=== PATIENT | male | born 1985 | race Caucasian/White ===

== ENCOUNTER → 2020-02-05 | Day surgery (SDC) | payer OTHER ==
--- NOTE | 2020-02-03 20:58 | Pre Op History & Physical ---
DATE OF SURGERY: February 05, 2020. CHIEF COMPLAINT: Chronic tonsillitis and history of lingual tonsillitis. HISTORY OF PRESENT ILLNESS: This 34-year-old male has history of sore throat. He also complained of persistent halitosis. The patient has no dysphagia, odynophagia or shortness of breath. The patient does have pain in his lingual tonsil area on exam. He has been treated with more than eight weeks of antibiotics, topical nasal steroid, decongestant with no improvement. REVIEW OF SYSTEMS: System review showed no recent cardiovascular, respiratory or GI problem. PAST MEDICAL HISTORY: He has no medical problem. PAST SURGICAL HISTORY: He has no previous surgery. ALLERGIES: HE IS ALLERGIC TO STEROID SPRAY, WHICH HE CLAIMED THAT MAKE HIM VOMIT BUT HE CAN TAKE STEROID BY MOUTH. MEDICATIONS: He is on Clomid and ampheta-dextro. SOCIAL HISTORY: Nonsmoker, nondrinker. FAMILY HISTORY: Noncontributory. PHYSICAL EXAMINATION: VITAL SIGNS: The patient's vital signs were within normal limits. HEENT: Ear exam showed normal tympanic membrane bilaterally. Nasal exam showed deviated nasal septum on the right side about 20%. Nasal endoscopy showed mobile vocal folds bilaterally with reproduction of some of his discomfort in the lingual tonsil area. Oropharynx and oral cavity show 2+ tonsils bilaterally with Mallampati level two with tonsilliths on both sides. NECK: Showed no lymph node or thyroid palpable. CHEST: Showed good air entry bilaterally. CARDIOVASCULAR: Showed S1, S2. No murmur noted. ASSESSMENT AND PLAN: Mr. Clifford has chronic tonsillitis and lingual tonsillitis, which has been resistant to conservative therapy. The suggested treatment is tonsillectomy and biopsy of the lingual tonsil and other necessary procedure. Complication of procedure includes but not limited to bleeding, infection, hyponasal speech, nasal regurgitation of food, airway distress, persistent recurrence of the problem. The alternative will be continue observation, continue antibiotic therapy, topical nasal steroid therapy, systemic steroid therapy, decongestant. The patient has elected to undergo surgical procedure. MD DAWSON Diaz/ESTEBANL /[id number]
[~2020-02-05] MED LIST: ADDERALL 20 MG20 MG PO; BUPIVACAINE HCL 0.5% INJ 30 ML VIAL INJ ONE; DEXAMETHASONE SOD PHOS 10 MG/1 ML VIAL ONE; GLYCOPYRROLATE INJ 0.2 MG/ML VIAL ONE; LIDOCAINE 1% W/EPINEPHRINE 20 ML VIAL ONE; LIDOCAINE HCL 2% LOCAL INJ 5 ML SDV VIAL INJ ONE; NEOSTIGMINE 1 MG/ML 10ML VIAL ONE; ONDANSETRON HCL INJ 2MG/ML 2ML 2 MG/ML VIAL ONE; PROPOFOL IV EMULSION 10 MG/ML 20 ML VIAL ONE; ROCURONIUM BROMIDE 10 MG/ML 5ML VIAL IV ONE; SEVOFLURANE INHAL SOLN 250 ML PEN BTL ONE; SUGAMMADEX SODIUM 200 MG/2 ML VIAL IV ONE
[2020-02-05 07:11] LABS: INR 0.9; PROTHROMBIN TIME 12.6 seconds (11.9-14.5)
[2020-02-05 07:12] LABS: PARTIAL THROMBOPLASTIN TIME 27.7 seconds (23.8-35.5)
--- NOTE | 2020-02-05 08:51 | Operative Report ---
DATE OF PROCEDURE: 02/05/2020 SURGEON: Jose Watkins MD CHIEF COMPLAINT: Chronic tonsillitis and throat pain. POSTOPERATIVE DIAGNOSIS: Chronic tonsillitis and throat pain. OPERATIVE PROCEDURE: Tonsillectomy and biopsy of the left and right tongue base. ANESTHESIA: Anesthesiology group. INDICATIONS: This 34-year-old male who has chronic tonsillitis with tonsillith and halitosis. The patient also has persistent throat pain, which attribute on examination to his lingual tonsil. The patient has been treated with multiple antibiotics with no improvement. On examination, he was noted to have 2+ tonsils with exudate. 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 It was decided that tonsillectomy with biopsy of the lingual tonsil and other necessary procedure will be beneficial for him. DESCRIPTION OF PROCEDURE: The patient was taken to the operating room, put under general anesthesia, endotracheally intubated. He was put in [place] position, McIvor mouth gag was inserted. The tonsil fossas were injected with 1% Xylocaine with 1:100,000 epinephrine for hemostasis. The right tonsil was retracted medially. A plane was created between the tonsil and tonsillar bed. Dissection was carried down the inferior pole, tonsil was snared off. Similar procedure was carried out on the left side. Again, after plane was created between the tonsil and tonsillar bed, dissection was carried down the inferior pole and tonsil was snared off. Hemostasis and tonsillar fossas were achieved using the suction cautery. The tongue base was examined. Slight increased lymphoid tissue was noted in the tongue base. The left and the right tongue base in the lingual tonsil area were biopsied and sent for permanent section using a cup forceps. Nasopharynx, oropharynx, and oral cavity were irrigated with copious amount of normal saline. 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 No enlarged adenoid was noted, this was not disturbed. The stomach was suctioned out at the end of procedure. The patient tolerated the above procedure well with estimated blood loss of about 20 mL. He was given 20 mg of Decadron intraoperatively. The patient was able to be transferred to recovery room in stable condition. Jose Watkins MD [facility]/MODL /[id number]
[2020-02-05 09:50] VITALS: BP 113/71
== END | disposition home or self-care (01) ==
LOC: OR 05:46
PROVIDERS: ATTEND Otolaryngology Otolaryngology/Facial Plastic Surgery
DX: J35.01 Chronic tonsillitis (principal); D10.1 Benign neoplasm of tongue; F90.9 Attention-deficit hyperactivity disorder, unspecified type; Z01.812 Encounter for preprocedural laboratory examination; Z11.59 Encounter for screening for other viral diseases
CPT/HCPCS: 36415; 41105; 42826; 85610; 85730; 88304; 88305; 88312; J1100; J2001; J2405; J2704; J2710; U0002